=== PATIENT | female | born 2000 | race Caucasian/White ===

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

== ENCOUNTER 2018-06-14 17:33 | Emergency (ER) | payer MEDICAID ==
[~2018-06-14] VITALS: Ht 152.4 cm; Wt 64.0 kg
[2018-06-14] MEDS ORDERED: IBUPROFEN 600MG TABLET PO ONE (18:45)
[2018-06-14 19:09] VITALS: BP 130/88
== END 2018-06-14 19:10 | disposition home or self-care (01) ==
LOC: ER 18:45
DX: N64.4 Mastodynia (principal)
CPT/HCPCS: 81025; 99283